=== PATIENT | male | born 1975 | race Native Hawaiian/Other Pacific Islander ===

== ENCOUNTER 2020-12-22 11:27 | Emergency (ER) | payer OTHER ==
[~2020-12-22] VITALS: Ht 182.9 cm; Wt 113.4 kg
[2020-12-22 11:27] VITALS: TEMP 98.3
[2020-12-22 12:07] LABS: PLATELET COUNT 164 K/uL (142-355)
[2020-12-22 12:24] LABS: POTASSIUM 3.8 mmol/L (3.6-5.2)
[2020-12-22 15:58] VITALS: BP 111/75
== END 2020-12-22 15:58 | disposition home or self-care (01) ==
LOC: ED 11:34
PROVIDERS: Family Medicine
DX: U07.1 COVID-19 (principal); E86.0 Dehydration; I95.89 Other hypotension
CPT/HCPCS: 80053; 80307; 81000; 83605; 85027; 87040; 93005; 96360; 96361; 99284

== ENCOUNTER 2023-03-02 15:22 | Emergency (ER) | payer OTHER ==
[~2023-03-02] VITALS: Ht 182.9 cm; Wt 111.1 kg
[2023-03-02 15:25] VITALS: BP 131/87; TEMP 97.4
== END 2023-03-02 17:20 | disposition home or self-care (01) ==
LOC: ED 15:22
PROC: 0CQ10ZZ Repair Lower Lip, Open Approach (ICD-10-PCS; principal; 2023-03-02)
DX: S01.511A Laceration without foreign body of lip, initial encounter (principal); W20.8XXA Other cause of strike by thrown, projected or falling object, initial encounter; Y92.89 Other specified places as the place of occurrence of the external cause
CPT/HCPCS: 90471; 90715; 99283

== ENCOUNTER 2024-01-08 08:34 | Outpatient (CLI) | payer BC | END 2024-01-08 18:51 | disposition home or self-care (01) | LOC: LABW 08:34 | PROVIDERS: ATTEND Nurse Practitioner | DX: R09.81 Nasal congestion (principal) ==